=== PATIENT | female | born 1990 | race Caucasian/White ===

== ENCOUNTER 2019-07-08 14:45 | Emergency (ER) | payer SELFPAY ==
[~2019-07-08] VITALS: Ht 154.9 cm; Wt 59.2 kg
[2019-07-08 14:50] VITALS: Ht 154.9 cm; Wt 59.2 kg
[2019-07-08 17:40] LABS: BASOPHIL % 0.5 % (0-2); PLATELET COUNT 243 x10^3mcL (130-400); RED CELL DISTRIBUTION WIDTH 12.4 % (11.5-14.5)
[2019-07-08 17:56] LABS: CALCIUM 8.9 mg/dL (8.5-10.1); CARBON DIOXIDE 25.1 mmol/L (21-32); CHLORIDE SERUM 107 mmol/L (98-107); CREATININE SERUM 0.7 mg/dL (0.6-1.0); GFR1 > 60 mL/min; GLUCOSE SERUM 120 mg/dL (74-106); POTASSIUM SERUM 3.8 mmol/L (3.5-5.1); SODIUM SERUM 142 mmol/L (136-145)
[2019-07-08 18:00] LABS: ALBUMIN 3.7 g/dL (3.4-5.0); ALKALINE PHOSPHATASE 61 U/L (46-116); ALT/SGPT 15 U/L (14-59); AST/SGOT 15 U/L (15-37); BILIRUBIN TOTAL 0.3 mg/dL (0.20-1.00); CHOLESTEROL 145 mg/dL (<200); LIPASE 129 IU/L (73-393); TOTAL PROTEIN, SERUM 7.1 g/dL (6.4-8.2)
[2019-07-08 18:01] LABS: CHOLESTEROL/HDL RATIO 2.2; HDL CHOLESTEROL 65 mg/dL (40-60); TRIGLYCERIDES 28 mg/dL (<150)
[2019-07-08 19:35] VITALS: BP 107/75
== END 2019-07-08 19:35 | disposition home or self-care (01) ==
LOC: ED 14:45
PROVIDERS: Specialist
DX: R10.30 Lower abdominal pain, unspecified (principal); M54.6 Pain in thoracic spine
CPT/HCPCS: 36415; 72072; J1885